=== PATIENT | male | born 1990 | race Caucasian/White ===

== ENCOUNTER 2021-08-26 10:53 | Emergency (ER) | payer MEDICAID, OTHER ==
[~2021-08-26] VITALS: Ht 170.2 cm; Wt 97.5 kg
[2021-08-26 11:26] VITALS: BP 131/56
== END 2021-08-26 11:36 | disposition home or self-care (01) ==
LOC: EDH 10:53
DX: R04.1 Hemorrhage from throat (principal); E07.9 Disorder of thyroid, unspecified
CPT/HCPCS: 99281